=== PATIENT | male | born 1940 | race Hispanic/Latino ===

== ENCOUNTER 2017-06-29 08:39 | Outpatient (CLI) | payer MEDICARE, BC ==
--- NOTE | 2017-06-29 10:12 | RAD ---
2 VIEW CHEST: Date: 06/29/17 INDICATION: Clear cell adenocarcinoma. FINDINGS: Lungs are clear. There is slight hypoinflation which accentuates the cardiac silhouette. No effusion or discrete pneumothorax. Osseous degenerative changes are present. IMPRESSION: No focal consolidation. POS: TEDDY
--- NOTE | 2017-06-29 13:00 | CT ---
ABDOMEN CT WITH AND WITHOUT CONTRAST PELVIC CT WITH AND WITHOUT CONTRAST: Date: 06/29/17 COMPARISON: 11/09/16. HISTORY: Microscopic hematuria. Left kidney surgery. TECHNIQUE: Abdomen and pelvis CT performed with and without IV contrast. Reformatted images are submitted for in terpretation. FINDINGS: ABDOMEN CT: Dependent atelectatic changes in the lung bases. Heart size is within normal limits. No significant pericardial fluid. The descending thoracic aorta and abdominal aorta have a normal caliber. No periaortic fat stranding. Symmetric attenuation of the psoas muscles. Intra and extrahepatic portal vein is patent. CT evidence of cholelithiasis without evidence of cholecystitis. Hypoattenuation of the liver due to hepatic steatosis. The spleen, pancreas, and adrenal glands have appropriate enhancement. 8 mm nodule involving the lateral limb of the right adrenal gland has an attenuation coefficient of - 13 Hounsfield units, suggesting a small adenoma. Stable cyst emanating from the right kidney, measuring 5.5 x 4.6 cm. Attenuation coefficient of 16 Ho unsfield units suggesting a slightly complex cyst. There is stable postsurgical change in the left pe rinephric region. Symmetric enhancement of the kidneys. Bilaterally, no hydronephrosis, nephrolithias is, or perinephric fat stranding. Bilateral ureters have normal caliber. No hydroureter, periureteral fat stranding, or ureterolithiasis. There is symmetric excretion into a normal appearing intra and e xtrarenal collecting system. No mesenteric mass or free air. No free fluid. There is stable stranding of the left upper quadrant m esentery with mildly enlarged mesenteric lymph nodes. Correlate for mesenteric lymphadenitis. Limited evaluation of the alimentary canal due to lack of oral contrast. Evidence of bowel obstructio n. Ileocecal junction is normal. Normal caliber appendix. Fecal material in a nondistended, nondilate d colon. Occasional diverticulum. No evidence of diverticulitis. PELVIC CT: Contrast in the dependent portion of the urinary bladder. Bladder mucosal prominence likely due to in adequate distention. Mild prostatic hypertrophy. No pelvic mass, lymphadenopathy, free air, or free f luid. There are no lytic or blastic lesions. IMPRESSION: 1. Stable postsurgical changes of the left kidney. 2. Stable complex right renal cyst. 3. Stable mesenteric lymphadenitis in left hemiabdomen. 4. Persistent mucosal prominence of urinary bladder. Consider cystoscopy. POS: ANDREAS
[2017-06-29] MEDS ORDERED: Iopamidol 370 76% 100 ML VIAL ONE (15:23)
== END 2017-06-29 08:40 | disposition home or self-care (01) ==
LOC: CT 08:39
PROVIDERS: ATTEND Urology
DX: C64.2 Malignant neoplasm of left kidney, except renal pelvis (principal); R31.29 Other microscopic hematuria; N28.1 Cyst of kidney, acquired; N32.89 Other specified disorders of bladder; I88.0 Nonspecific mesenteric lymphadenitis; Z98.890 Other specified postprocedural states
CPT/HCPCS: 36415; 71020; 74178; 80048; 81001; 87086; 88112

== ENCOUNTER 2018-06-18 09:54 | Outpatient (CLI) | payer MEDICARE, BC ==
[2018-06-18 10:41] LABS: ALT (SGPT) 34 U/L (8-55); AST (SGOT) 25 U/L (5-34); Alkaline Phosphatase 71 U/L (40-150); Anion Gap 11 mmol/L (10-20); BUN (Urea Nitrogen) 15 mg/dL (8.4-25.7); Bilirubin, Direct 0.4 mg/dL (0.1-0.3); Bilirubin, Total 0.8 mg/dL (0.2-1.2); Calc. Creatinine Clearance 0 mL/min (70-130); Calcium 9.1 mg/dL (7.8-10.44); Carbon Dioxide 29 mmol/L (23-31); Chloride 103 mmol/L (98-107); Estimated GFR-MDRD 61; Glucose 95 mg/dL (83-110); Protein, Total 6.6 g/dL (5.8-8.1); Sodium 139 mmol/L (136-145)
[2018-06-18 10:52] LABS: Bilirubin Negative (Negative); Blood, Urine Large (Negative); Clarity Clear (Clear); Glucose, Urine (Dipstick) Negative (Negative); Leukocyte Negative (Negative); Nitrite Negative (Negative); Protein, Urine (Dipstick) 30 mg/dL (Neg-Trace); Specific Gravity, Urine 1.015 (1.005-1.030); Urobilinogen 0.2 mg/dL (0.2-1.0)
[2018-06-18 10:59] LABS: Bacteria/HPF None Seen HPF (None Seen); RBC/HPF GREATER THAN 50-TNTC HPF (0-3); Sperm/HPF 3+ HPF (None Seen); Squamous Epithelial 0-3 HPF (0-3); Transitional Epithelial 0-3 HPF (0-3); WBC/HPF None Seen HPF (0-3)
--- NOTE | 2018-06-18 11:38 | ULT ---
BILATERAL RENAL ULTRASOUND COMPLETE: History: 78-year-old male with follow up right renal cyst. Comparison: 06-29-17 CT FINDINGS: Right kidney measures 10.1 x 5.3 x 4.7 cm. The left kidney is smaller measuring 8.7 x 6.3 x 6.0 cm. 4 .2 x 4.7 cm right renal cyst. No renal hydronephrosis or perinephric process. There is coarse increas ed echogenicity within the liver, nonspecific, but certainly could represent some fatty change. The b ladder appears unremarkable. IMPRESSION: Right renal cyst. No renal hydronephrosis. Stable appearing right renal cyst from prior CT. POS: TEDDY
== END 2018-06-18 09:55 | disposition home or self-care (01) ==
LOC: SCSULT 09:54
PROVIDERS: ATTEND Urology
DX: C64.2 Malignant neoplasm of left kidney, except renal pelvis (principal); R31.29 Other microscopic hematuria; N28.1 Cyst of kidney, acquired
CPT/HCPCS: 36415; 76770; 80048; 80076; 81001; 87086; 88112

== ENCOUNTER 2019-06-25 09:06 | Outpatient (CLI) | payer MEDICARE, BC ==
--- NOTE | 2019-06-25 09:37 | RAD ---
EXAM: Chest PA and lateral: HISTORY: Clear cell adenocarcinoma, left kidney COMPARISON: 06/29/2017 FINDINGS: Heart: Normal cardiac silhouette Aorta: Unremarkable Pulmonary vessels: Normal Costophrenic angles: Costophrenic angles are clear. Lungs: No consolidation or masses. Pneumothorax: No pneumothorax Osseous structures: No osseous abnormalities IMPRESSION: No acute cardiopulmonary process.
== END 2019-06-25 09:07 | disposition home or self-care (01) ==
LOC: RAD 09:06
PROVIDERS: ATTEND Urology
DX: C64.2 Malignant neoplasm of left kidney, except renal pelvis (principal); N28.1 Cyst of kidney, acquired
CPT/HCPCS: 71046; 80053; 81001; 87086

== ENCOUNTER 2019-07-04 12:33 | Outpatient (CLI) | payer MEDICARE, BC ==
--- NOTE | 2019-07-04 13:49 | ULT ---
BILATERAL RENAL ULTRASOUND: HISTORY: Renal cyst. COMPARISON: CT from 2017. TECHNIQUE: Real-time, valentine-scale and color evaluation of the kidneys is performed. FINDINGS: Incidental note is made of diffuse increased hepatic echotexture. Exophytic simple right renal cyst m easures up to 5.1 cm in size. The urinary bladder is unremarkable. No renal mass or hydronephrosis. The right kidney measures 10.4 x 9.7 x 5.5 cm and the left kidney me asures 9 x 5.1 x 4.6 cm. There is a partial nephrectomy defect of the superior pole left kidney. IMPRESSION: 1. Simple cyst of right kidney. 2. No evidence for obstructive uropathy. POS: TPC
== END 2019-07-04 12:34 | disposition home or self-care (01) ==
LOC: BICULT 12:33
PROVIDERS: ATTEND Urology
DX: C64.2 Malignant neoplasm of left kidney, except renal pelvis (principal); N28.1 Cyst of kidney, acquired
CPT/HCPCS: 76770

== ENCOUNTER 2022-06-17 13:49 | Outpatient (CLI) | payer MEDICARE, BC | END 2022-06-17 13:50 | disposition home or self-care (01) | LOC: BICULT 13:49 | PROVIDERS: ATTEND Urology | DX: C64.2 Malignant neoplasm of left kidney, except renal pelvis (principal); N28.1 Cyst of kidney, acquired; M51.34 Other intervertebral disc degeneration, thoracic region; M51.35 Other intervertebral disc degeneration, thoracolumbar region; M25.78 Osteophyte, vertebrae; Z98.890 Other specified postprocedural states | CPT/HCPCS: 71046; 76770 ==